=== PATIENT | male | born 1995 | race American Indian/Alaskan Native ===

== ENCOUNTER 2020-08-22 07:14 | Emergency (ER) | payer SELFPAY ==
--- NOTE | 2020-08-22 07:26 | Emergency Department Report ---
ED CPR HPI - General Stated Complaint: CARDIAC ARREST Time Seen by Provider: 08/22/20 07:20 - History of Present Illness Initial Comments: Patient is 25-year-old male with unknown past medical history. Patient brought to the emergency room via [facility] in a full cardiac arrest with CPR in progress. EMS stated that they arrived around 6:45 AM this morning to patient that was found by his friend in his car outside in the pass enger seat unresponsive. Unknown downtime. EMS stated that they immediately started ACLS protocol on the patient. Patient found to be in asystole. Patient received 2 mg of epinephrine, sodium bicarb and dextrose. Upon arrival to the ER ACLS protocol continued however after careful exam patient has significant evidence of rigor mortis. Pupils are 4 mm fixed and dilated. Patient pronounced at 7:14 AM. Complaint: found unresponsive -: unknown Place: street Bystander CPR Performed: No Initial Findings in the Field: no respirations, no pulse, systole ROSC in the Field: No Associated Injuries: No Treatments Prior to Arrival: BMV, epinephrine mgs # (2), sodium bicarbonate, glucose - Related Data Allergies Allergy/AdvReac Type Severity Reaction Status Date / Time Unable to Assess Allergy Unverified 08/22/20 08:48 ED Review of Systems ROS: Stated complaint: CARDIAC ARREST Other details as noted in HPI Comment: Unobtainable due to pts medical conditions ED Physical Exam - General General appearance: other (CPR in progress. Obvious signs of rigor mortis.) - Head Head exam: Present: atraumatic - Eye Pupils: Present: other (4 mm fixed and dilated.) - Respiratory Respiratory exam: Present: other (No spontaneous breathing.) - Cardiovascular Cardiovascular Exam: Present: other (No spontaneous heart tone.) - Extremities Exam Extremities exam: Present: other (Evidence of rigor mortis.) - Neurological Exam Neurological exam: Present: other (CPR in progress.) - Skin Skin exam: Present: dry, pallor ED Course - Reevaluation(s) Reevaluation #1: 08/22/20 09:00 Patient family arrived to the emergency room. Family include patient mother, aunt and cousin. Mother stated that the last time she saw him was July 14 of this year at her home but he went to skilled nursing after that and he was released yesterday. She stated that his only medical problem is asthma. She also reported to the EMS that he take Percocet for pain. Critical Care Time: Yes Critical care time in (mins) excluding proc time.: 30 Critical care attestation.: If time is entered above; I have spent that time in minutes in the direct care of this critically ill patient, excluding procedure time. ED Disposition Clinical Impression: Cardiopulmonary arrest Disposition: DC-20 Is pt being admited?: No Condition: Stable
[2020-08-22] MEDS ORDERED: SODIUM BICARB 8.4% 50 MEQ/50 ML SYRINGE IV ONE (08:43)
[2020-08-22] MEDS ORDERED: EPINEPHrine 1 MG/10 ML SYRINGE ONE (08:43)
== END 2020-08-22 09:00 ==
LOC: ED 07:14
DX: I46.9 Cardiac arrest, cause unspecified (principal)
CPT/HCPCS: 92950; 99285; J0171